=== PATIENT | male | born 1980 | race Caucasian/White ===

== ENCOUNTER 2024-02-08 10:52 | Emergency (ER) | payer OTHER, SELFPAY ==
[2024-02-08 11:07] VITALS: BP 188/98; PULSE 79; RESP 18; TEMP 36.8; O2SAT 98; BMI 32.5
--- NOTE | 2024-02-08 11:12 | CT_ITS ---
WS: [id number] CT HEAD NONCONTRAST HISTORY: head injury TECHNIQUE: Contiguous axial imaging performed through the brain. Bone and soft tissue windows. Sagitt al and coronal reformats reviewed. All CT scans at [facility] use at least one of these dose optimization techniques: automated exposure control; mA and/or kV adjustment per patient size (includ es targeted exams where dose is matched to clinical indication); or iterative reconstruction. DLP: 1094.48 mGy.cm COMPARISON: None available. No acute intracranial hemorrhage, midline shift or mass effect. No atrophy or prior infarcts or herniation. Ventricles: Normal size with no hydrocephalus. No inferior displacement of the cerebellar tonsils. Paranasal sinuses: As visualized are clear. Mastoid air cells: Well pneumatized. Calvarium and scalp: No skull fracture. Soft tissue hematoma with laceration centered over the hand baseball sewer ior high parietal occipital bone. CT/CT head wo con* [id number] IMPRESSION: 1. No acute intracranial hemorrhage or edema. 2. Scalp laceration and hematoma over the high mid parietal occipital region.
--- NOTE | 2024-02-08 11:13 | W.ED.HEATRA ---
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 He does have abrasion to posterior scalp states he also had a loss conscious for few seconds this happened roughly 2 hours ago. He is has a mild headache denies any other injuries denies any neck pain Associated symptoms: Deny nausea, neck pain or vomiting Related Data Home Medications Medication Instructions Recorded Confirmed ascorbic acid (vitamin C) 1,000 mg 1,000 mg PO DAILY 02/08/24 02/08/24 tablet,extended release (Vitamin C ER) [id number] 333 mg-133 1 tab PO DAILY 02/08/24 02/08/24 mg-5 mg tablet cholecalciferol (vitamin D3) 125 125 mcg PO DAILY 02/08/24 02/08/24 mcg (5,000 unit) tablet (Vitamin D3) Allergies Allergy/AdvReac Type Severity Reaction Status Date / Time No Known Allergies Allergy Verified 02/08/24 11:13 Review of Systems Const: Denies: fever(s), chills, body aches or change in appetite ENMT: Denies: throat pain or dental pain Card: Denies: chest pain Resp: Denies: dyspnea GI: Denies: abdominal pain, nausea, vomiting or diarrhea Musc: Denies: neck pain or back pain Skin/Breast: Denies: rash Neuro: Reports: headache(s) [facility] PFSH: Social History Smoking and tobacco/nicotine status: former use of tobacco/nicotine Alcohol intake: never Substance/Drug Use: never Physical Exam Const: COMMON NORMALS: no acute distress, patient oriented x3 and healthy appearing HENMT: COMMON NORMALS: normocephalic HEAD & SCALP: normocephalic OTHER: Abrasion noted to posterior scalp Eye: COMMON NORMALS: Equal, round and reactive pupils present and EOMs intact bilaterally PUPIL: Yes Equal, round and reactive pupils present Neck/C-Spine: COMMON NORMALS: full ROM and supple CERVICAL SPINE: Yes cervical ROM normal and No Cervical spine tenderness Chest: COMMONS NORMALS: normal inspection of the chest Resp: COMMON NORMALS: normal respiratory effort Cardio: COMMON NORMALS: regular rate, regular rhythm and No murmurs present (Cardio) RATE: regular rate RHYTHM: regular rhythm Extremity: COMMON NORMALS: normal to inspection and full ROM Neuro: COMMON NORMALS: patient oriented x3, moves all extremities and no focal motor deficits Psych: COMMON NORMALS: mental status grossly normal, Normal thought process present and cooperative THOUGHT PROCESS: Normal thought process present Skin: COMMON NORMALS: no rashes or lesions noted and no wounds GENERAL SKIN EXAM: no rashes or lesions noted Procedures Laceration Laceration 1: Site: scalp Size (cm): 1 Description: linear Depth: simple, single layer Skin layer closed with: other (dermabond) Course Vital Signs: Vital signs: Vital Signs Temperature 98.3 F 02/08/24 11:07 Pulse Rate 79 02/08/24 11:07 Respiratory Rate 18 02/08/24 11:07 Blood Pressure 188/98 02/08/24 11:07 Pulse Oximetry 98 02/08/24 11:07 Oxygen Delivery Me thod Room Air 02/08/24 11:07 MDM - Head Injury Medcial Decision Making Patient presents with close head injury from a fall he had a small laceration to his head that was repaired with Dermabond head CT is normal he stable for discharge follow-up PCP return if worsening. Lab Data Radiology Impressions Head CT 02/08/24 11:12 IMPRESSION: 1. No acute intracranial hemorrhage or edema. 2. Scalp laceration and hematoma over the high mid parietal occipital region. All radiology interpretation(s) finalized by discharge Discharge Plan Discharge Patient Disposition: Home Clinical Impression: Closed head injury Condition: Stable Prescriptions: No Action Vitamin C 1,000 mg Tablet Extended Release 1,000 mg PO DAILY [id number] 333-133-5 mg Tablet 1 tab PO DAILY cholecalciferol (vitamin D3) [Vitamin D3] 125 mcg (5,000 unit) Tablet 125 mcg PO DAILY Discharge Orders: Discharge ED (Routine); Ordered 02/08/24 Ordered By: Yesika Ernandez Discharge Diet: Advance as tolerated Discharge Activity: Resume usual activity Patient Instructions: Head Injury (ED) Coding Level of Care Code ED Grinding Supervisor for Jesus Mackey
[2024-02-08 12:26] VITALS: BP 154/81; PULSE 73; O2SAT 98
== END 2024-02-08 12:26 | disposition home or self-care (01) ==
PROVIDERS: Emergency Provider Emergency Medicine
DX: S09.8XXA Other specified injuries of head, initial encounter (principal); S01.01XA Laceration without foreign body of scalp, initial encounter; Z87.891 Personal history of nicotine dependence; W19.XXXA Unspecified fall, initial encounter
CPT/HCPCS: 12001; 70450; 99284